=== PATIENT | male | born 1940 | race African-American/Black ===

== ENCOUNTER 2016-12-11 16:42 | Emergency (ER) | payer MEDICARE, OTHER ==
[~2016-12-11] VITALS: Ht 167.6 cm; Wt 85.0 kg
[~2016-12-11 16:42] MED LIST: CLON0.3T PO; DIABETES PILL PO; ENAL10TA7 PO; METO100T PO; NORV10TA PO
[2016-12-11 16:45] VITALS: BP 185/86; PULSE 71; RESP 14; TEMP 97.6; O2SAT 96
[2016-12-11] MEDS ORDERED: METO100T PO (19:49)
[2016-12-11] MEDS ORDERED: CLON0.3T PO (19:49)
[2016-12-11] MEDS ORDERED: ENAL20TA PO (19:49)
[2016-12-11] MEDS ORDERED: AMLO10 PO (19:49)
--- NOTE | 2016-12-11 19:52 | PD ---
HPI Chief Complaint: Back/ Neck Pain or Injury Time Seen by Provider: 19:40 Travel History International Travel<30 days: No Contact w/Intl Traveler<30days: No Traveled to known affect area: No History of Present Illness HPI 76-year-old male presents for evaluation of lower back pain. Symptoms started 3 days ago. The pain is a sharp pain in the right lower back that is reproduced with movement. It is relieved if he is sitting still. He denies any injuries. He says that aspirin helps some with this pain. He denies any radicular symptoms, abdominal pain, nausea or vomiting, bowel or bladder incontinence, saddle anesthesia, hematuria, flank pain. He does not recall any specific mechanism of injury. He has no other complaints at this time. [facility] Past Medical History High Cholesterol: Yes Diabetes: Yes Hypertension: Yes Past Surgical History Appendectomy: Yes Social History Alcohol Use: Yes (6 PACK/WEEK) Tobacco Use: No (QUIT 6 YRS AGO) Substance Use: No Allergies-Medications (Allergen,Severity, Reaction): Coded Allergies: No Known Allergies (Verified , 07/28/13) Reported Meds & Prescriptions Reported Meds & Active Scripts Active Reported Norvasc (Amlodipine Besylate) 10 Mg Tab 10 Mg PO DAILY Metoprolol Tartrate 100 Mg Tab 100 Mg PO BID Enalapril (Enalapril Maleate) 20 Mg Tab 20 Mg PO DAILY Clonidine (Clonidine HCl) 0.3 Mg Tab 0.3 Mg PO BID [Diabetes Pill] PO Review of Systems Except as stated in HPI: all other systems reviewed are Neg Physical Exam Narrative GENERAL: Pleasant well-developed well-nourished male who is resting comfortably in hospital bed. His vital signs have been reviewed. SKIN: Warm and dry. There is no rash, no ecchymosis. HEAD: Atraumatic. Normocephalic. EYES: Pupils equal and round. No scleral icterus. No injection or drainage. ENT: No nasal bleeding or discharge. Mucous membranes pink and moist. NECK: Trachea midline. No JVD. CARDIOVASCULAR: Regular rate and rhythm. No murmur appreciated. RESPIRATORY: No accessory muscle use. Clear to auscultation. Breath sounds equal bilaterally. GASTROINTESTINAL: Abdomen soft, non-tender, nondistended. No palpable pulsatile masses. MUSCULOSKELETAL: No obvious deformities. No tenderness to palpation along the thoracic or lumbar spine or CVA tenderness. The patient has normal steady gait. NEUROLOGICAL: Awake and alert. No obvious cranial nerve deficits. Motor grossly within normal limits. Normal speech. Data Data Last Documented VS Vital Signs Date Time Temp Pulse Resp B/P Pulse Ox O2 Delivery O2 Flow Rate FiO2 12/11/16 16:45 97.6 71 14 185/86 96 Room Air Orders Spine, Lumbar - Ltd (Ap & Lat) (12/11/16 ) Tramadol (Ultram) (12/11/16 21:30) MDM Medical Decision Making Medical Screen Exam Complete: Yes Emergency Medical Condition: Yes Medical Record Reviewed: Yes Differential Diagnosis Lumbar strain, compression fracture, muscle spasm, degenerative disc disease, spinal stenosis, renal stone, AAA Narrative Course 76-year-old male with 3 days of right-sided lower back pain. The pain is reproduced with movement. Currently is having no pain when sitting still. His abdomen is soft and nontender. He has no symptoms to suggest spinal cord injury. Physical examination is reassuring. I suspect muscular etiology for this patient's pain. I don't suspect renal stone, AAA. X-ray imaging reveals degenerative changes with no fracture. The patient has been stable during his hospital stay. He will be discharged with a short course of muscle relaxants. Diagnosis Primary Impression: Lumbar strain Qualified Code: S39.012A - Lumbar strain, initial encounter Additional Instructions: Medication as needed. Do not drive or drink alcohol when taking this medication. Follow-up closely with primary care physician. Return for any new or worsening symptoms. Med/Other Pt SpecificInfo: Prescription(s) given Scripts Baclofen 10 Mg Tab10 Mg PO TID PRN (MUSCLE SPASM) 7 Days Ref 0 Prov:Cristobal Travis MD 12/11/16 Disposition: 01 DISCHARGE HOME Condition: Stable René Vinson Dec 11, 2016 19:52
--- NOTE | 2016-12-11 20:55 | RADRPT ---
EXAM DATE/TIME: 12/11/2016 20:00 [place] COMPARISON: No previous studies available for comparison. INDICATIONS : Lower back pain after getting up wrong way. MEDICAL HISTORY : None. SURGICAL HISTORY : None. ENCOUNTER: Initial ACUITY: 4 - 6 days PAIN SCORE: 4/10 LOCATION: Right lower back. FINDINGS: Alignment is satisfactory. There is no evidence of fracture or destructive change. There is fairly se ezequiel diffuse degenerative change with disc space narrowing and prominent endplate osteophytes and syn desmophytes throughout. CONCLUSION: Degenerative changes. No evidence of acute bony process Rip Coy MD on December 11, 2016 at 20:53 Board Certified Radiologist. This report was verified electronically.
[2016-12-11] MEDS ORDERED: BACL10TA PO (21:26)
[2016-12-11] MEDS ORDERED: traMADol HCL 50 MG TAB PO ONE (21:30)
== END 2016-12-11 21:36 | disposition home or self-care (01) ==
LOC: NEPB 16:42
DX: S39.012A Strain of muscle, fascia and tendon of lower back, initial encounter (principal); E78.00 Pure hypercholesterolemia, unspecified; E11.9 Type 2 diabetes mellitus without complications; I10 Essential (primary) hypertension
CPT/HCPCS: 72100; 99283